=== PATIENT | male | born 1985 | race Caucasian/White ===

== ENCOUNTER 2017-09-17 13:55 | Emergency (ER) | payer OTHER ==
[~2017-09-17] VITALS: Ht 167.6 cm; Wt 77.1 kg
[2017-09-17 14:11] VITALS: Ht 167.6 cm; Wt 77.1 kg
[2017-09-17 14:45] VITALS: BP 131/89
== END 2017-09-17 14:45 | disposition other institution (70) ==
LOC: ED 13:55
DX: S51.852A Open bite of left forearm, initial encounter (principal); T43.621A Poisoning by amphetamines, accidental (unintentional), initial encounter; W54.0XXA Bitten by dog, initial encounter; Y93.89 Activity, other specified; Y99.8 Other external cause status; Y92.89 Other specified places as the place of occurrence of the external cause